=== PATIENT | male | born 1965 | race Caucasian/White ===

== ENCOUNTER 2019-06-13 09:57 | Observation (INO) | payer OTHER ==
[2019-06-13] MEDS ORDERED: Lactated Ringers 1,000 ML IV ONE (10:05)
[2019-06-13] MEDS ORDERED: Ondansetron 4 MG/2 ML SDV ONE (10:16)
[2019-06-13] MEDS ORDERED: Iopamidol 612 MG/ML 100 ML Bottle IVPUSH ONE (10:19)
[2019-06-13] MEDS ORDERED: Iopamidol 612 MG/ML 50 ML SDV IVPUSH ONE (10:19)
[2019-06-13] MEDS ORDERED: Sodium Chloride 0.9% 10 ML Syringe FLUSH ONE (10:19)
[2019-06-13] MEDS ORDERED: HYDROmorphone 0.5 MG/0.5 ML Syringe IVPUSH ONE (11:32)
[2019-06-13] MEDS ORDERED: Ondansetron 4 MG/2 ML SDV IVPUSH ONE (11:37)
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
[2019-06-13] MEDS ORDERED: Diphtheria,Pertussis(Acell),Tetanus Vaccine 0.5 ML Syringe IM ONE (12:51)
--- NOTE | 2019-06-13 13:51 | CT ---
Head CT Technique: Multiple axial sections through the brain were obtained. Intravenous contrast was not utilized. Comparison: No prior intracranial imaging is available. Findings: Ventricles along with basal cisterns and sulci over the convexities are within normal limits for the patient's age. No abnormal parenchymal densities are seen. No evidence of intracranial hemorrhage. No midline shift or mass-effect is seen. Bone window settings were reviewed. Visualized paranasal sinuses and mastoid sinuses show nothing acute. No acute calvarial abnormality is appreciated. Impression: 1. Nothing acute is appreciated on noncontrast head CT exam. Diagnostic code #1 This report was dictated in MDT MTDD
--- NOTE | 2019-06-13 13:52 | CT ---
CT cervical spine Technique: Multiple axial sections were obtained from above C1 to inferiorly through T1. Reconstructed sagittal and coronal images were reviewed. Findings: Mild degenerative change is noted between the dens and anterior arch of C1. Mild disc space narrowing noted at C5-6. Severe disc space narrowing noted at C6-7. Posterior osteophytes are noted at C6-7. Anterior osteophytes are seen throughout the cervical spine. Artifact is noted within the lower cervical spine and upper thoracic spine due to patient body habitus. Vertebral bodies and posterior arches appear to be intact. No fracture is appreciated. Mild right-sided neural foraminal stenosis is noted at C6-7. Other neural foramina are patent. No bony central canal stenosis is seen. No abnormal subluxation is seen. Impression: 1. Mild degenerative change as noted above. 2. Nothing acute is appreciated on CT study of the cervical spine. Diagnostic code #2 This report was dictated in MDT MTDD
--- NOTE | 2019-06-13 13:53 | CT ---
CT chest Technique: Multiple axial sections through the chest were obtained. Reconstructed coronal and sagittal images were obtained. Comparison: No prior chest imaging is available. Findings: Mediastinum and hilar regions show no adenopathy. Aorta appears unremarkable. No mediastinal hematoma is seen. No axillary adenopathy is noted. Lung window settings showed no acute parenchymal change. No pulmonary contusion , pleural effusion or pneumothorax is seen. Bone window settings were obtained. On the reconstructed sagittal images fracture is identified within the manubrium of the sternum. No displacement is seen. No significant retrosternal soft tissue swelling is noted. No other acute osseous finding is appreciated. Impression: 1. Nondisplaced manubrial fracture. 2. No other acute finding is seen on CT study of the chest. 3. Other nonacute findings as noted above. Diagnostic code #3 CT abdomen and pelvis Technique: Multiple axial sections were obtained from above the dome of the diaphragm inferiorly through the pubic symphysis. Intravenous contrast was utilized. No oral contrast has been given. Reconstructed sagittal and coronal images were reviewed. Delayed images were also obtained through the abdomen and pelvis. Comparison: No prior abdominal imaging is available. Findings: Liver shows no focal parenchymal abnormality. Spleen appears without acute finding. Small low density finding is noted anteriorly within the spleen measuring 5 mm which is believed to be incidental. Adrenal glands show no nodule. Pancreas shows no discrete abnormality. Gallbladder contains no calcified gallstones. Kidneys show evidence of cysts on both sides. Kidneys show symmetric contrast enhancement without acute finding. Delayed images shows contrast excretion into both ureters as well as bladder with contrast extravasation. Aorta shows no aneurysm. No retroperitoneal adenopathy or mesenteric abnormalities are seen. Appendix is seen which is normal in size. No pelvic mass or adenopathy is seen. Fat-containing right inguinal hernia is noted. No free fluid or inflammatory change is appreciated. Bone window settings were reviewed which shows disc space narrowing at L5-S1 with vacuum phenomena. No acute osseous finding is appreciated. Impression: 1. Findings as noted above. 2. Nothing acute is appreciated on CT study of the abdomen and pelvis. Diagnostic code #2 Study was dictated in MDT MTDD
--- NOTE | 2019-06-13 13:54 | CT ---
CT lumbar spine Technique: Multiple axial sections were obtained through the lumbar spine. Reconstructed coronal and sagittal images were obtained. Findings: Severe disc space narrowing is noted at L5-S1 with vacuum disc phenomena. Degenerative apophyseal change is noted at L5-S1. Diffuse circumferential disc bulging is noted throughout the lumbar spine. No central canal stenosis or discrete neural foraminal stenosis is seen. No abnormal subluxation is seen. Impression: 1. Degenerative change as noted above. 2. Nothing acute is appreciated on CT study of the lumbar spine. Diagnostic code #2 This report was dictated in MDT MTDD
--- NOTE | 2019-06-13 13:55 | CT ---
CT thoracic spine Technique: Multiple axial sections through the thoracic spine were obtained. Reconstructed coronal and sagittal images were obtained. Findings: Anterior endplate osteophytes are seen most prominent at T7-T8, T8-T9 and T9-T10. Vertebral body heights are maintained. No fracture is appreciated. No abnormal subluxation is seen. Fracture within the manubrium is again noted. Impression: 1. Degenerative change. 2. Manubrial fracture is again seen. 3. Nothing acute is seen within the thoracic spine. Diagnostic code #3 Study was dictated in MDT MTDD
[2019-06-13] MEDS: Losartan 25 MG Tab PO SCH (15:25)
[2019-06-13] MEDS: amLODIPine 10 MG Tab PO SCH (15:25)
[2019-06-13] MEDS: Metoprolol Tartrate 50 MG Tab PO SCH (15:26)
[2019-06-13] MEDS: Clopidogrel 75 MG Tab PO SCH (15:26)
[2019-06-13] MEDS: HYDROmorphone 0.5 MG/0.5 ML Syringe IVPUSH PRN (15:44)
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
[2019-06-13] MEDS ORDERED: Docusate Sodium 100 MG Cap PO PRN (18:15)
[2019-06-13] MEDS: Acetaminophen/oxyCODONE 325-5 MG Tab PO PRN (19:58)
[2019-06-14] MEDS: Acetaminophen/oxyCODONE 325-5 MG Tab PO PRN ×4 (03:50→20:13)
[2019-06-14] MEDS: HYDROmorphone 0.5 MG/0.5 ML Syringe IVPUSH PRN (04:09)
[2019-06-14] MEDS: Docusate Sodium 100 MG Cap PO SCH ×2 (08:14→20:13)
[2019-06-14] MEDS: amLODIPine 10 MG Tab PO SCH (08:14)
[2019-06-14] MEDS: Losartan 25 MG Tab PO SCH (08:15)
[2019-06-14] MEDS: Clopidogrel 75 MG Tab PO SCH (08:15)
[2019-06-14] MEDS: Metoprolol Tartrate 50 MG Tab PO SCH (08:15)
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
[2019-06-15] MEDS: Clopidogrel 75 MG Tab PO SCH (09:08)
[2019-06-15] MEDS: Metoprolol Tartrate 50 MG Tab PO SCH (09:08)
[2019-06-15] MEDS: amLODIPine 10 MG Tab PO SCH (09:08)
[2019-06-15] MEDS: Docusate Sodium 100 MG Cap PO SCH (09:08)
[2019-06-15] MEDS: Losartan 25 MG Tab PO SCH (09:09)
== END 2019-06-15 11:15 | disposition home or self-care (01) ==
LOC: JD.ED 09:57 → JD.MS 12:23
PROVIDERS: ADMIT Surgery; ATTEND Surgery
DX: S22.21XA Fracture of manubrium, initial encounter for closed fracture (principal); S30.0XXA Contusion of lower back and pelvis, initial encounter; E78.00 Pure hypercholesterolemia, unspecified; I10 Essential (primary) hypertension; I25.2 Old myocardial infarction; M54.5 Low back pain; M54.6 Pain in thoracic spine; H11.32 Conjunctival hemorrhage, left eye; Z23 Encounter for immunization; Z88.6 Allergy status to analgesic agent; Z88.8 Allergy status to other drugs, medicaments and biological substances; Z79.899 Other long term (current) drug therapy; Z95.5 Presence of coronary angioplasty implant and graft; Z87.891 Personal history of nicotine dependence; V68.6XXA Passenger in heavy transport vehicle injured in noncollision transport accident in traffic accident, initial encounter; Y92.411 Interstate highway as the place of occurrence of the external cause
CPT/HCPCS: 36415; 70450; 71260; 72125; 72128; 72131; 74177; 80053; 82150; 83605; 84484; 85025; 85610; 85730; 90471; 90715; 93005; 96361; 96374; 96375; 97110; 97116; 97161; 97165; 97535; 99285; A9270; J1170; J2405; J7120; Q9967; 93010; G0378